=== PATIENT | male | born 1955 | race Caucasian/White ===

== ENCOUNTER → 2024-08-25 12:15 | Outpatient (REF) | payer OTHER, SELFPAY | LOC: HWRAD 12:15 | PROVIDERS: ATTENDING PHYSICIAN Nurse Practitioner Adult Health; FAMILY PHYSICIAN Internal Medicine Critical Care Medicine | DX: Z87.891 Personal history of nicotine dependence (principal) | CPT/HCPCS: 71271 ==

== ENCOUNTER 2024-09-17 10:41 | Emergency (ER) | payer OTHER, SELFPAY ==
--- NOTE | 2024-09-17 10:54 | ED.GENMED ---
ED Provider Triage
<MARYELLEN Iqbal - Last Filed: 09/17/24 11:00>
-
Patient seen by provider in Triage?: Seen in Triage
Attestation: A medical screening examination has been initiated by a qualified medical provider. Based on the assessment performed at this time, it has been determined that an emergent medical condition may exist and the patient has been informed
that further medical evaluation and possible additional diagnostic testing may be needed.
HPI: pt is a 69 yr old male with PMH of COPD presents to the ED for evaluation of 'flu symptoms' for past 2 wks. Pt c/o of sinus congestion, nausea , temp of 103, Diarrhea( several times a day ). Pt was at work today and felt lightheaded
and nausea. Pt is drinking but eating less, reports no appetite.
GENERAL: Alert , in no apparent distress
EYE: No visual abnormalities.
NECK: Trachea midline
ENT: No visible abnormalities.
LUNGS: No acute respiratory distress, mild exp wheezing
NEUROLOGICAL: Alert and oriented
SKIN: Skin intact. No visible changes.
MUSCULOSKELETAL: Moving extremities normally
PSYCH: Normal and appropriate interaction.
This is a medical evaluation conducted in person to initiate diagnostic evaluation and provide initial therapeutics. Please see further documentation by the treating clinician.
History of Present Illness
<MARYELLEN Iqbal - Last Filed: 09/17/24 11:00>
General
Chief Complaint: Cold/Flu/URI Symptoms
Time Seen by Provider: 09/17/24 12:14
<Porter Orosco DO - Last Filed: 09/17/24 15:15>
General
Source: patient
Exam Limitations: none
Nursing documentation reviewed up to this point in time: agreed with
History of Present Illness
History of Present Illness:
69-year-old male presents emergency department due to flu symptoms for the past 2 weeks, sinus congestion, nausea, diarrhea and coughing. He had a fever of 103 last week.
Past History
<MARYELLEN Iqbal - Last Filed: 09/17/24 11:00>
Past History
ED Past Medical History: CAD, COPD, HTN, Other (History unavailable) and Other
ED Past Surgical History: Other (History unavailable)
Social History
Tobacco: Other (Suspect the patient is a smoker, smell noted)
Alcohol: Other (History unavailable)
<Porter Orosco, DO - Last Filed: 09/17/24 15:15>
Social History
Tobacco: Smoker (Suspect the patient is a smoker, smell noted)
Drug: None
Employment: Employed
Review of Systems
<Porter Orosco DO - Last Filed: 09/17/24 15:15>
Review of Systems
Allergies reviewed?: Yes
All Other Systems: Not applicable
Constitutional: Reports fever
EENT: Reports no symptoms
Respiratory: Reports cough and trouble breathing
Cardiac: Reports no symptoms
ABD/GI: Reports nausea
: Reports no symptoms
Musculoskeletal: Reports no symptoms
Skin: Reports no symptoms
Neurological: Reports no symptoms
Endocrine: Reports no symptoms
Hematologic/Lymphatic: Reports no symptoms
Psychiatric: Reports no symptoms
Phy Exam
<Porter Orosco DO - Last Filed: 09/17/24 15:15>
Physical Exam
Physical Exam:
Physical Exam
General: no apparent distress, not acutely ill
Neck: supple. no meningeal signs. normal posterior pharynx
Heart: s1/s2 regular rate and rhythm, no murmur. equal radial
pulses.
HEENT: Pupils equal round reactive to light, EOMI
Lungs: no acute respiratory distress. clear bilaterally
Abdomen: normal bowel sounds. not tender. no CVAT
Neuro: alert and oriented. no focal neurological deficits cranial nerves II through XII intact
Skin: no rash
Psychiatric: well kept. interactive and cooperative
Extremities: no edema. no calf tenderness. negative homans. good distal pulses
Course
<MARYELLEN Iqbal - Last Filed: 09/17/24 11:00>
Orders/Labs/Results
Orders:
Orders
09/17/24 11:06
COVID-19 Antigen Urgent
Source: Nasal Swab
Complete Blood Count/With Diff Urgent
Comprehensive Metabolic Panel Urgent
Influenza A+B Rapid Molecular Urgent
ADRIAN Source: Nasal Swab
Specimen Description:
09/17/24 12:28
Ipratropium/Albuterol Sulfate [Duoneb] 3 ml INH R NOW STA
CR Chest - 2 Views Urgent
Comment:
Reason For Exam: short of breath
Abnormal Lab Results
09/17/24
11:06
WBC 15.8 H 10^3/uL
(4.8-10.8)
Hct 52.4 H %
(39.0-52.0)
Plt Count 406 H 10^3/uL
(130-400)
Abs Immat Gran (auto) 0.5 H 10^3/uL
(0-0.05)
Absolute Neuts (auto) 11.5 H 10^3/uL
(1.4-6.5)
Absolute Monos (auto) 1.2 H 10^3/uL
(0.1-0.6)
Immature Gran % 3.4 H %
(0-0.5)
Lymphocytes % 14.5 L %
(20.5-51.1)
Sodium 134 L mmol/L
(135-145)
Chloride 93 L mmol/L
(98-107)
Carbon Dioxide 36 H mmol/L
(22-30)
Glucose 105 H mg/dl
(70-99)
09/17/24 11:06
09/17/24 11:06
Vital Signs
Initial and Last Documented VS:
Initial Vital Signs
Temp Pulse Resp BP Pulse Ox
97.3 F 100 20 168/96 90
09/17/24 10:55 09/17/24 10:55 09/17/24 10:55 09/17/24 10:55 09/17/24 10:55
Last Documented Vital Signs
Temp Pulse Resp BP Pulse Ox
97.3 F 100 20 168/96 90
09/17/24 10:55 09/17/24 10:55 09/17/24 10:55 09/17/24 10:55 09/17/24 10:55
<Porter Orosco, DO - Last Filed: 09/17/24 15:15>
Orders/Labs/Results
Orders:
Orders
09/17/24 11:06
COVID-19 Antigen Urgent
Source: Nasal Swab
Complete Blood Count/With Diff Urgent
Comprehensive Metabolic Panel Urgent
Influenza A+B Rapid Molecular Urgent
ADRIAN Source: Nasal Swab
Specimen Description:
09/17/24 12:28
Ipratropium/Albuterol Sulfate [Duoneb] 3 ml INH R NOW STA
CR Chest - 2 Views Urgent
Comment:
Reason For Exam: short of breath
Abnormal Lab Results
09/17/24
11:06
WBC 15.8 H 10^3/uL
(4.8-10.8)
Hct 52.4 H %
(39.0-52.0)
Plt Count 406 H 10^3/uL
(130-400)
Abs Immat Gran (auto) 0.5 H 10^3/uL
(0-0.05)
Absolute Neuts (auto) 11.5 H 10^3/uL
(1.4-6.5)
Absolute Monos (auto) 1.2 H 10^3/uL
(0.1-0.6)
Immature Gran % 3.4 H %
(0-0.5)
Lymphocytes % 14.5 L %
(20.5-51.1)
Sodium 134 L mmol/L
(135-145)
Chloride 93 L mmol/L
(98-107)
Carbon Dioxide 36 H mmol/L
(22-30)
Glucose 105 H mg/dl
(70-99)
09/17/24 11:06
09/17/24 11:06
Vital Signs
Initial and Last Documented VS:
Initial Vital Signs
Temp Pulse Resp BP Pulse Ox
97.3 F 100 20 168/96 90
09/17/24 10:55 09/17/24 10:55 09/17/24 10:55 09/17/24 10:55 09/17/24 10:55
Last Documented Vital Signs
Temp Pulse Resp BP Pulse Ox
97.3 F 100 20 168/96 90
09/17/24 10:55 09/17/24 10:55 09/17/24 10:55 09/17/24 10:55 09/17/24 10:55
<Porter Orosco, DO - Last Filed: 09/17/24 15:15>
MDM/Problems Addressed
Differential Diagnosis Includes:
Sinusitis, pneumonia
MDM/Problems Addressed:
69-year-old male with intermittent fevers, suspect sinusitis. No pneumonia seen. Patient improved after DuoNeb's.
Chronic conditions affecting care: COPD
Acute Exacerbation and/or Progression of Chronic Illness: COPD
<Porter Orosco, DO - Last Filed: 09/17/24 15:15>
*Radiology
Radiology exam reviewed: radiology read reviewed (Chest x-ray shows tree-in-bud, chronic inflammation)
*Pulse Oximetry
Patient hypoxic: no
*Critical Care Note
Total Time (30-74mins, 75-104mins- exclusive of procedures): Not Applicable
Data Reviewed
Review of Other/Old Records Reveals: Radiology Studies (Prior CT chest shows similar tree-in-bud)
Source: records
<Porter Orosco DO - Last Filed: 09/17/24 15:15>
Patient Management
Social determinants of health affecting care: Living situation
Discussion with other providers: Radiologist (Discussed results with Dr. Hathaway)
Escalation/DeEscalation of care consider admission/obs:
Admit not indicated
ED Attending Note
<MARYELLEN Iqbal - Last Filed: 09/17/24 11:00>
-
Portions of this chart may have been created with voice recognition software.� Occasional wrong word or��sound alike� substitutions may have occurred due to the inherent limitations of voice recognition software.
Discharge Plan
Departure
Patient Disposition: Home (Routine Discharge)
Date of Disposition: 09/17/24
Time of Disposition: 15:11
Patient with high blood pressure during this ER visit?: Yes
Condition: Good
Discharge Problem:
Acute sinusitis, Acute bronchitis
Instructions: Sinusitis in adults, Acute Bronchitis, Adult (DC), BLOOD PRESSURE
Prescriptions:
New
amoxicillin 500 mg capsule
500 mg PO TID 7 Days Qty: 21 0RF
No Action
aspirin 81 MG tablet,chewable
81 mg PO DAILY Qty: 30 0RF
Rx Instructions:
Rx hand written
atorvastatin 40 MG tablet
40 mg PO HS
tiotropium bromide [Spiriva Respimat] 1 PUFF mist
1 puff inhalation DAILY
fluticasone furoate-vilanterol [Breo Ellipta] 1 EACH blister with device
1 ea inhalation DAILY
doxycycline hyclate 100 MG capsule
100 mg PO Q12 1 Days Qty: 2 0RF
nifedipine 30 MG tablet extended release
30 mg PO DAILY 30 Days Qty: 30 0RF
nicotine 21 MG patch 24 hour
21 mg transdermal DAILY 30 Days Qty: 30 0RF
fluticasone propionate 1 SPRAY spray,suspension
1 spray intranasal DAILY 30 Days Qty: 1 0RF
prednisone 10 MG tablet
10 mg PO .TAPER Qty: 50 0RF
Rx Instructions:
Take 50mg daily x2days, 40mg daily x4days,
30mg daily x4days, 20mg daily x4days,
10mg daily x4days
sulfamethoxazole-trimethoprim [Bactrim DS] 800-160 mg tablet
1 tab PO BID Qty: 14 0RF
naproxen 500 mg tablet
500 mg PO BID Qty: 20 0RF
Referrals:
NONE,* [Family Provider] -
Interventions
Interventions:
*Risk Screen - Suicide Last Done: 09/17/24 10:55
*General Assessment Last Done: 09/17/24 10:55
*Neglect/Abuse Screening Last Done: 09/17/24 10:55
ED- Fall Risk Assessment Last Done: 09/17/24 12:22
*ED COVID-19 Vaccine History Last Done: 09/17/24 12:22
AL-Qeduyb-Qovqvjlqgd Assessment Last Done: 09/17/24 12:22
ED- Pulmonary Assessment Last Done: 09/17/24 12:22
Discharge Date and Time
Print Language: ROMANIAN
[2024-09-17 10:55] VITALS: BP 168/96
[2024-09-17 11:24] LABS: % Basophils 0.6 % (0-2); % Eosinophils 0.9 % (0-6); % Immature Granulocytes 3.4 % (0-0.5); % Lymphocytes 14.5 % (20.5-51.1); % Monocytes 7.6 % (1.7-9.3); Absolute Basophils 0.1 10^3/uL (0-0.2); Absolute Eosinophils 0.1 10^3/uL (0-0.7); Absolute Immature Granulocytes 0.5 10^3/uL (0-0.05); Absolute Lymphocytes 2.3 10^3/uL (1.2-3.4); Absolute Monocytes 1.2 10^3/uL (0.1-0.6); Absolute Neutrophils 11.5 10^3/uL (1.4-6.5); Hematocrit 52.4 % (39.0-52.0); Hemoglobin 17.4 g/dL (13.0-18.0); Mean Corp Hgb Conc. 33.2 g/dL (33.0-37.0); Mean Corpuscular Hgb 30.9 pg (27.0-31.0); Mean Corpuscular Volume 93.1 fL (80.0-94.0); Nucleated Red Blood Cells % 0 % (-); Platelet Count 406 10^3/uL (130-400); Red Blood Cell Count 5.63 10^6/uL (4.70-6.10); Red Cell Dist. Width 14.4 % (11.5-14.5); White Blood Cell Count 15.8 10^3/uL (4.8-10.8)
[2024-09-17 11:31] LABS: ALT (SGPT) 37 U/L (0-50); AST (SGOT) 27 U/L (17-59); Albumin 4.2 g/dl (3.5-5.0); Alkaline Phosphatase 72 U/L (38-126); Blood Urea Nitrogen 13 mg/dl (9-20); Carbon Dioxide 36 mmol/L (22-30); Chloride 93 mmol/L (98-107); Glucose 105 mg/dl (70-99); Potassium 4.8 mmol/L (3.5-5.1); Sodium 134 mmol/L (135-145); Total Bilirubin 0.6 mg/dl (0.2-1.3); Total Protein 7.3 g/dl (6.3-8.2); eGFR > 60.00
[2024-09-17 11:35] LABS: COVID-19 Antigen Negative (Negative)
[2024-09-17] MEDS: DUONEB 3 ML INH (13:12)
[2024-09-17 15:17] VITALS: BP 153/96
== END 2024-09-17 15:21 | disposition home or self-care (01) ==
LOC: EMR 10:41
PROVIDERS: Nurse Practitioner; EMERGENCY PHYSICIAN Emergency Medicine
DX: J01.90 Acute sinusitis, unspecified (principal); J20.9 Acute bronchitis, unspecified; I10 Essential (primary) hypertension; F17.200 Nicotine dependence, unspecified, uncomplicated; Z11.52 Encounter for screening for COVID-19
CPT/HCPCS: 99284; 94640; 71046; 80053; 85025; 87502; 87811

== ENCOUNTER → 2025-04-28 10:07 | Outpatient (REF) | payer OTHER, SELFPAY | LOC: RAD 10:07 | PROVIDERS: ATTENDING PHYSICIAN Internal Medicine Critical Care Medicine | DX: J44.9 Chronic obstructive pulmonary disease, unspecified (principal); J43.1 Panlobular emphysema; Z72.0 Tobacco use; R06.2 Wheezing | CPT/HCPCS: 71046 ==

== ENCOUNTER → 2025-08-26 09:41 | Outpatient (REF) | payer OTHER, SELFPAY | LOC: HWRAD 09:41 | PROVIDERS: ATTENDING PHYSICIAN Internal Medicine Critical Care Medicine | DX: Z12.2 Encounter for screening for malignant neoplasm of respiratory organs (principal); J43.1 Panlobular emphysema; F17.210 Nicotine dependence, cigarettes, uncomplicated | CPT/HCPCS: 71271 ==